=== PATIENT | female | born 1940 | race Caucasian/White ===

== ENCOUNTER → 2018-10-02 | Outpatient (CLI) | payer OTHER ==
[~2018-10-02] MED LIST: CIPRO250 M1 PO; LISINOPRIL10 MG PO; MEDROLDOSEPACK PO; MOBIC7.5 MG PO; NORCO 5-325 TA1 EACH PO; VITAMIN D1000 UNI1 PO; ZOLOFT50 MG PO
== END ==
LOC: M.RAD 09:35
DX: Z12.31 Encounter for screening mammogram for malignant neoplasm of breast (principal)

== ENCOUNTER → 2020-08-05 | Outpatient (CLI) | payer MEDICARE | LOC: M.RAD 15:30 | PROVIDERS: ATTEND Nurse Practitioner Family | DX: Z12.31 Encounter for screening mammogram for malignant neoplasm of breast (principal); M81.0 Age-related osteoporosis without current pathological fracture; Z78.0 Asymptomatic menopausal state ==

== ENCOUNTER → 2020-08-12 | Outpatient (CLI) | payer MEDICARE | LOC: M.ULTRA 13:38 | PROVIDERS: ATTEND Nurse Practitioner Family | DX: N60.02 Solitary cyst of left breast (principal); N63.20 Unspecified lump in the left breast, unspecified quadrant ==